=== PATIENT | female | born 1985 ===

== ENCOUNTER 2023-03-15 05:07 | Emergency (ER) | payer OTHER ==
[~2023-03-15] VITALS: Ht 180.3 cm; Wt 61.2 kg
[2023-03-15 05:41] VITALS: BP 125/83
[2023-03-15] MEDS ORDERED: SULTRIDS PO (06:54)
== END 2023-03-15 07:06 | disposition home or self-care (01) ==
LOC: ER 05:07
DX: L03.113 Cellulitis of right upper limb (principal); L03.116 Cellulitis of left lower limb; L01.03 Bullous impetigo; B35.3 Tinea pedis; F17.210 Nicotine dependence, cigarettes, uncomplicated
CPT/HCPCS: 99282; A9270